=== PATIENT | female | born 1985 ===

== ENCOUNTER 2016-11-26 15:25 | Emergency (ER) | payer OTHER, SELFPAY ==
[2016-11-26] MEDS ORDERED: Sodium Chloride 0.9% 1,000 ML IV ONE (16:24)
--- NOTE | 2016-11-26 16:58 | C.PDOC ---
History Of Present Illness Patient is a 30 y/o F with hx of gallstones, presenting with complaint of "my gallbladder hurts." Patient reports 1 day history of worsening RUQ pain. Reports nausea. Denies vomiting, fever, dysuria, vaginal bleeding or discharge. Patient denies chest pain or shortness of breath but reports that the RUQ pain is so severe that she "cant breathe." Time Seen by Provider: 11/26/16 16:20 Chief Complaint (Nursing): Abdominal Pain Past Medical History Vital Signs: Last Vital Signs Temp 97.9 F 11/26/16 18:32 Pulse 66 11/26/16 18:32 Resp 16 11/26/16 18:32 BP 130/83 11/26/16 18:32 Pulse Ox 99 11/26/16 18:32 - Medical History PMH: Gall Bladder Disease Surgical History: No Surg Hx Family History: States: No Known Family Hx - Social History Hx Alcohol Use: No Hx Substance Use: No - Immunization History Hx Tetanus Toxoid Vaccination: No Hx Influenza Vaccination: No Hx Pneumococcal Vaccination: No Review Of Systems Constitutional: Negative for: Fever, Chills Cardiovascular: Negative for: Chest Pain, Palpitations Respiratory: Negative for: Cough, Shortness of Breath, SOB with Excertion, Wheezing Gastrointestinal: Positive for: Nausea, Abdominal Pain. Negative for: Vomiting , Diarrhea, Constipation Genitourinary: Negative for: Dysuria, Vaginal Discharge, Vaginal Bleeding Physical Exam - Physical Exam Appears: Well, Non-toxic, No Acute Distress Skin: Normal Color, Warm, Dry Head: Atraumatic, Normacephalic Eye(s): bilateral: Normal Inspection, PERRL, EOMI Chest: Symmetrical Cardiovascular: Rhythm Regular Respiratory: Normal Breath Sounds, No Rales, No Rhonchi, No Wheezing, No Plerual Rub Gastrointestinal/Abdominal: Soft, Tenderness (RUQ), No Mass, No Distention Back: Normal Inspection, No CVA Tenderness Extremity: Normal ROM Neurological/Psych: Oriented x3 ED Course And Treatment - Laboratory Results Result Diagrams: 11/26/16 17:35 11/26/16 17:35 O2 Sat by Pulse Oximetry: 97 Medical Decision Making Medical Decision Making: U/s shows "1. Contracted gallbladder with cholelithiasis. Gallbladder calculi measuring up to 1 centimeter. Evaluation is limited as the gallbladder is contracted. Normal wall thickness of 2.5 millimeters. Negative sonographic Russell's sign. 2. Mild increased echogenicity of the hepatic parenchyma suggestive for fatty infiltration versus hepatic parenchymal disease. Clinical correlation. 3. Limited visualization of the pancreatic tail." Poc negative. UA shows trace leukocytes, but only 5 wbc and patient denies dysuria. Her CMP shows elevated lfts and with a calciner feeder she was made aware of these abnormalities and the need to follow-up. On reevaluation she has soft NT/ND abdomen and is tolerating po. Will follow-up with general surgery as outpatient. Disposition - Disposition Referrals: Horacio Jcaobson MD [Staff Provider] - [facility] [Outside] Disposition: HOME/ ROUTINE Disposition Time: 18:14 Condition: GOOD Additional Instructions: Follow-up with PMD within 2 days for further evaluation of elevated lfts. Follow-up with general surgery for elective cholecystectomy. Return to ED if condition worsens. Instructions: Cholecystitis (ED) Forms: Gen Discharge Inst [facility], [employer] ([place]) Print Language: SLOVENIAN - Clinical Impression Clinical Impression: Elevated LFTs, Abdominal pain
[2016-11-26] MEDS ORDERED: Sodium Chloride 0.9% 1,000 ML ONE (17:05)
[2016-11-26 17:20] LABS: SQUAMOUS EPITHIAL 6 /hpf (0-5); URINE BACTERIA RARE (<OCC); URINE BILIRUBIN NEGATIVE (NEGATIVE); URINE BLOOD 1+ (NEGATIVE); URINE CLARITY Clear (Clear); URINE COLOR Yellow (YELLOW); URINE GLUCOSE (UA) NORMAL (Normal); URINE LEUKOCYTE ESTERASE TRACE Leu/uL (Negative); URINE NITRATE NEGATIVE (NEGATIVE); URINE PROTEIN NEGATIVE (NEGATIVE); URINE UROBILINOGEN NORMAL mg/dL (0.2-1.0)
--- NOTE | 2016-11-26 17:21 | US ---
Abdominal ultrasound History: Right upper quadrant abdominal pain. Comparison: None available. Technique: Real-time sonography was through the abdomen. Findings: Liver: 14.3 centimeters in length. Mild increased echogenicity of the hepatic parenchyma suggestive for fatty infiltration versus hepatic parenchymal disease. Clinical correlation. Gallbladder: Contracted, limiting evaluation. Cholelithiasis with calculi measuring up to 1 centimeter. Normal wall thickness of 2.5 millimeters. Negative sonographic Russell's sign. Common bile duct measures 3.2 millimeters, within normal limits. Visualized portions of the pancreas are preserved. Pancreatic tail not well visualized. Spleen measures up to 11 centimeters in length, within normal limits. Visualized portions of the aorta and IVC are preserved. Right kidney: 10.9 x 4.1 x 4.8 centimeters. No calculi or hydronephrosis. Left Kidney: 11.1 x 3.6 x 4.9 centimeters. No calculi or hydronephrosis. Impression: 1. Contracted gallbladder with cholelithiasis. Gallbladder calculi measuring up to 1 centimeter. Evaluation is limited as the gallbladder is contracted. Normal wall thickness of 2.5 millimeters. Negative sonographic Russell's sign. 2. Mild increased echogenicity of the hepatic parenchyma suggestive for fatty infiltration versus hepatic parenchymal disease. Clinical correlation. 3. Limited visualization of the pancreatic tail.
[2016-11-26 17:41] LABS: BASO % 0.2 % (0.0-2.0); EOS % 0.2 % (0.0-4.0); HEMOGLOBIN 11.5 g/dL (11.0-16.0); LYMPH # 1.1 K/uL (1.0-4.3); LYMPH % 8.8 % (20.0-40.0); MEAN CELL VOLUME 79.2 fL (81.0-99.0); MEAN CORPUSCULAR HEMOGLOBIN 25.7 pg (27.0-31.0); MEAN CORPUSCULAR HGB CONC 32.4 g/dL (33.0-37.0); MEAN PLATELET VOLUME 8.2 fL (7.2-11.7); MONO # 0.5 K/uL (0.0-0.8); MONO % 4.3 % (0.0-10.0); NEUT # 10.4 K/uL (1.8-7.0); NEUT % 86.5 % (50.0-75.0); PLATELET COUNT 273 K/uL (130-400); RBC 4.48 Mil/uL (3.80-5.20); RED CELL DISTRIBUTION WIDTH 14.7 % (11.5-14.5); WHITE BLOOD COUNT 12.1 K/uL (4.8-10.8)
[2016-11-26 17:51] LABS: ALBUMIN 4.3 g/dL (3.5-5.0)
[2016-11-26 17:53] LABS: GFR AFRICAN-AMERICAN > 60; GFR NON-AFRICAN AMERICAN > 60
[2016-11-26 17:54] LABS: ALB/GLOB RATIO 1.3 (1.0-2.1); ALT/SGPT 183 U/L (9-52); AST/SGOT 274 U/L (14-36); BLOOD UREA NITROGEN 9 mg/dL (7-17); CALCIUM 9.7 mg/dl (8.6-10.4); LIPASE 38 U/L (23-300)
[2016-11-26 18:33] VITALS: BP 130/83; PULSE 66; RESP 16; TEMP 97.9
[2016-11-26 18:35] LABS: EOSINOPHIL 1 % (0-4); LYMPHOCYTE 5 % (20-40); MONOCYTE 4 % (0-10); NEUTROPHIL 90 % (50-75); TOTAL CELLS COUNTED 100
[2016-11-26 18:36] LABS: PLATELET ESTIMATE NORMAL (NORMAL)
[2016-11-27 07:43] VITALS: O2SAT 97
== END 2016-11-26 18:32 | disposition home or self-care (01) ==
LOC: C.ER 15:25
DX: R79.89 Other specified abnormal findings of blood chemistry (principal); R10.9 Unspecified abdominal pain
CPT/HCPCS: 76700; 80053; 81001; 83690; 85025; 96361; 96374; 96375; 99284; J1885; J7040

== ENCOUNTER 2017-01-16 10:22 | Day surgery (SDC) | payer OTHER ==
[2017-01-09 14:30] VITALS: BMI 24.3
[2017-01-16] MEDS ORDERED: ceFAZolin IV 1 gm in Dextrose 1 GM/50 ML BAG IVPB ONE (11:57)
[2017-01-16] MEDS ORDERED: Lidocaine 1% Inj (20ml) ONE (11:57)
[2017-01-16] MEDS ORDERED: Bupivacaine 0.5%/Epi 1:200,000 (10 ML SOL) ONE (11:58)
[2017-01-16] MEDS ORDERED: Propofol 10 mg/ml Inj (20 ML) ONE (12:20)
[2017-01-16] MEDS ORDERED: Lactated Ringer's 1,000 ML IV ONE (12:20)
[2017-01-16] MEDS ORDERED: Midazolam 2 MG/2 ML VIAL ONE (12:20)
[2017-01-16] MEDS ORDERED: Rocuronium 10 mg/ml (5 ml) ONE (12:45)
[2017-01-16] MEDS ORDERED: Neostigmine Methylsulfate 3mg/3ml Syringe IV ONE (13:31)
--- NOTE | 2017-01-16 14:14 | PCM.SURG1 ---
Surgeon's Initial Post Op Note - Surgeon's Notes Surgeon: Dr. Jacobson Cutting Tool Sharpener: Georgia Anders PGY2 Pre-Operative Diagnosis: cholelithiasis Operative Findings: cholelithiasis Post-Operative Diagnosis: Same Operation Performed: Laparoscopic cholecystectomy Specimen/Specimens Removed: Gallbladder Estimated Blood Loss: EBL {In ML}: 5 Blood Products Given: N/A Drains Used: No Drains Post-Op Condition: Good Date of Surgery/Procedure: 01/16/17 Time of Surgery/Procedure: 14:14
[2017-01-16] MEDS ORDERED: HYDROmorphone 0.5 mg/0.5 ml ISec IVP PRN (14:16)
[2017-01-16 15:58] VITALS: O2SAT 100
[2017-01-16 16:58] VITALS: BP 118/67; PULSE 88; RESP 18; TEMP 98
--- NOTE | 2017-01-16 23:57 | OP ---
PROCEDURE DATE: 01/16/2017 PREOPERATIVE DIAGNOSES: Chronic cholecystitis and cholelithiasis. POSTOPERATIVE DIAGNOSES: Chronic cholecystitis and cholelithiasis. PROCEDURE DONE: Laparoscopic cholecystectomy. SURGEON: Dr. Jacobson. OPTOMETRIST PRESIDENT/PRACTICE OWNER: Nadeen, PGY-2, resident. TYPE OF ANESTHESIA: General endotracheal tube anesthesia. ESTIMATED BLOOD LOSS: Around 10 mL. DRAINS: None. PATHOLOGY: Gallbladder was sent for the pathology. COMPLICATIONS: None. INTRAOPERATIVE FINDINGS: The patient had changes of chronic cholecystitis and cholelithiasis. DESCRIPTION OF PROCEDURE: On intraoperative steps, this 31-year-old female was diagnosed with a chronic cholecystitis and cholelithiasis. The patient was subjected for laparoscopic cholecystectomy, possible open; brought to the OR, placed supine on operating table. After induction of the anesthesia, abdomen was prepped and draped in the usual sterile fashion. A supraumbilical transverse incision was made. After incising skin and subcutaneous tissue, the fascia was incised. Gold port was placed, pneumo was created. Another 12-mm port was placed in the midline below costal margin and another two 5-mm ports were placed in the midclavicular and anterior axillary line after the grasper and dissector were introduced and gallbladder was retracted cranially, Calot's triangle dissection was done. Cystic duct and cystic artery were identified and critical view of the safety was also identified. The cystic duct and cystic artery were clipped at 3 places and cut in between 2 clips near the gallbladder and gallbladder was dissected free from the gallbladder fossa, taken in an EndoCatch bag, taken out through the umbilical port site and sent off the table for the pathology. There was a proper hemostasis in each and every part of the procedure. All the ports were taken out under vision, pneumo was deflated. Umbilical port site was closed in 2 layers, fascia with 0 Vicryl interrupted sutures, skin with a 4-0 Monocryl and dry sterile dressing was applied. The patient tolerated the procedure well. Count of instrument and gauze was correct. There was no apparent complication. Horacio Jacobson MD [facility]
== END 2017-01-16 16:45 | disposition home or self-care (01) ==
LOC: C.SDS 10:22
PROVIDERS: ATTEND Surgery Surgical Critical Care
DX: K80.10 Calculus of gallbladder with chronic cholecystitis without obstruction (principal)
CPT/HCPCS: 47562; 88304; C1713; J0690; J1170; J1885; J2250; J2405; J2704; J2710; J2765; J3010; J7120